=== PATIENT | male | born 1990 | race American Indian/Alaskan Native ===

== ENCOUNTER 2021-01-08 13:37 | Emergency (ER) | payer SELFPAY ==
[2021-01-08 14:31] VITALS: BP 153/46
[2021-01-08] MEDS ORDERED: ACETAMINOPHEN 500 MG TAB PO STA (14:37)
[2021-01-08] MEDS ORDERED: IBUPROFEN 800 MG TAB PO STA (14:37)
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
== END 2021-01-08 17:33 | disposition home or self-care (01) ==
LOC: ED 13:37
DX: J02.9 Acute pharyngitis, unspecified (principal); Z79.899 Other long term (current) drug therapy
CPT/HCPCS: 99282

== ENCOUNTER 2021-08-12 15:44 | Emergency (ER) | payer SELFPAY ==
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
[2021-08-13 00:41] VITALS: BP 142/86
== END 2021-08-13 00:40 | disposition home or self-care (01) ==
LOC: ED 15:44
DX: M54.50 Low back pain, unspecified (principal); Z79.899 Other long term (current) drug therapy; V89.2XXA Person injured in unspecified motor-vehicle accident, traffic, initial encounter; Y93.89 Activity, other specified; Y92.488 Other paved roadways as the place of occurrence of the external cause; Y99.8 Other external cause status
CPT/HCPCS: 99282

== ENCOUNTER → 2022-04-25 13:35 | Emergency (ER) | payer SELFPAY | END | disposition left against medical advice (07) | LOC: ED 13:35 | DX: Z11.3 Encounter for screening for infections with a predominantly sexual mode of transmission (principal); Z53.21 Procedure and treatment not carried out due to patient leaving prior to being seen by health care provider ==

== ENCOUNTER 2022-04-25 23:26 | Emergency (ER) | payer SELFPAY ==
[2022-04-26 04:11] LABS: Bacteria,Urine 1+ /HPF (Negative); Mucus,Urine 3+ /HPF
[2022-04-26 04:22] LABS: Color,Urine Yellow (Yellow)
[2022-04-26] MEDS ORDERED: AZITHROMYCIN 250 MG TAB PO ONE (04:55)
[2022-04-26] MEDS ORDERED: LIDOCAINE-MPF (1%) 10 MG/1 ML VIAL 5 ML INFILTRATI ONE (04:55)
--- NOTE | 2022-04-26 04:56 | Emergency Department Report ---
ED General Adult HPI - General Chief complaint: Urogenital-Male Stated complaint: PENILE DISCHARGE Time Seen by Provider: 04/26/22 04:45 Source: patient Mode of arrival: Ambulatory Limitations: No Limitations - History of Present Illness Initial comments: 32-year-old male with no significant past medical history reports to the ER with complaints penile swelling 3 days and dysuria for 1 day. Patient had unprotected sex that was rough around 1 week ago. Patient reports started off with a condom and then condom popped during sex. No other acute symptoms reported at this time. - Related Data Previous Rx's Medication Instructions Recorded Last Taken Type Amoxicillin [Trimox CAP] 500 mg PO BID 10 Days #20 capsule 01/08/21 Unknown Rx Ibuprofen [Motrin 800 MG tab] 800 mg PO Q8HR PRN #20 tablet 01/08/21 Unknown Rx methocarbamoL [Methocarbamol] 750 mg PO TID PRN #20 tablet 01/08/21 Unknown Rx Ketorolac [Toradol] 10 mg PO Q6H PRN #15 tablet 08/12/21 Unknown Rx methOCARBAMOL [Robaxin TAB] 750 mg PO Q8H PRN #14 tablet 08/12/21 Unknown Rx Doxycycline Hyclate [Doxycycline 100 mg PO Q12HR 7 Days #14 tab 04/26/22 Unknown Rx Hyclate TAB] Allergies Allergy/AdvReac Type Severity Reaction Status Date / Time No Known Allergies Allergy Unverified 01/08/21 14:30 ED Review of Systems ROS: Stated complaint: PENILE DISCHARGE Other details as noted in HPI Comment: All other systems reviewed and negative Genitourinary: dysuria, other (Penis pain with swelling). denies: discharge ED Past Medical Hx - Past Medical History Previous Medical History?: No - Social History Smoking Status: Never Smoker Substance Use Type: None - Medications Home Medications: Home Medications Medication Instructions Recorded Confirmed Last Taken Type Amoxicillin [Trimox CAP] 500 mg PO BID 10 Days #20 capsule 01/08/21 Unknown Rx Ibuprofen [Motrin 800 MG tab] 800 mg PO Q8HR PRN #20 tablet 01/08/21 Unknown Rx methocarbamoL [Methocarbamol] 750 mg PO TID PRN #20 tablet 01/08/21 Unknown Rx Ketorolac [Toradol] 10 mg PO Q6H PRN #15 tablet 08/12/21 Unknown Rx methOCARBAMOL [Robaxin TAB] 750 mg PO Q8H PRN #14 tablet 08/12/21 Unknown Rx Doxycycline Hyclate [Doxycycline 100 mg PO Q12HR 7 Days #14 tab 04/26/22 Unknown Rx Hyclate TAB] ED Physical Exam - General Limitations: No Limitations General appearance: alert, in no apparent distress - Head Head exam: Present: atraumatic, normocephalic - Eye Eye exam: Present: normal appearance - ENT ENT exam: Present: mucous membranes moist - Neck Neck exam: Present: normal inspection - Respiratory Respiratory exam: Present: normal lung sounds bilaterally. Absent: respiratory distress - Cardiovascular Cardiovascular Exam: Present: regular rate, normal rhythm. Absent: systolic murmur, diastolic murmur, rubs, gallop - GI/Abdominal GI/Abdominal exam: Present: soft, normal bowel sounds - Rectal Rectal exam: Present: deferred - exam: Absent: testicular tenderness, urethral discharge, scrotal swelling External exam: Present: swelling (Penis tip). Absent: erythema - Extremities Exam Extremities exam: Present: normal inspection - Back Exam Back exam: Present: normal inspection - Neurological Exam Neurological exam: Present: alert, oriented X3 - Psychiatric Psychiatric exam: Present: normal affect, normal mood - Skin Skin exam: Present: warm, dry, intact, normal color. Absent: rash ED Course Vital Signs 04/26/22 04/26/22 02:27 05:55 Temperature 98.4 F Pulse Rate 57 L 72 Respiratory 16 16 Rate Blood Pressure 125/50 Blood Pressure 112/74 [Right] O2 Sat by Pulse 100 97 Oximetry ED Medical Decision Making - Medical Decision Making 32-year-old male with no significant past medical history reports to the ER with complaints penile swelling 3 days and dysuria for 1 day. Patient had unprotected sex that was rough around 1 week ago. Patient reports started off with a condom and then condom popped during sex. No other acute symptoms reported at this time. Distal penis swelling noted. No discharge noted. No scrotal tenderness noted. No nitrites or leukocytes noted in urine. Patient does have elevated WBC urine noted. Patient started on prophylaxis for gonorrhea chlamydia. Rocephin 500 mg IM, azithromycin 1000 mg p.o. Prescription for doxycycline 100 mg twice daily for 7 days. Patient informed to follow-up with [facility]. Patient is with plan of care and verbalized understanding. Vital Signs 04/26/22 04/26/22 02:27 05:55 Temperature 98.4 F Pulse Rate 57 L 72 Respiratory 16 16 Rate Blood Pressure 125/50 Blood Pressure 112/74 [Right] O2 Sat by Pulse 100 97 Oximetry Lab Results 04/26/22 Range/Units Unknown Urine Color Yellow (Yellow) Urine Turbidity Hazy (Clear) Specific [place] (Man) 1.020 (1.003-1.030) Ur Protein (Man) 3+ (Negative) mg/dL Ur Ketones (Man) Negative (Negative) Ur Nitrite (Man) Negative (Negative) Ur Reducing Substances Not Reportable Urine Ictotest Not Reportable Leukocyte Esterase (Man) Negative (Negative) Urine WBC (Auto) 27.0 H (0.0-6.0) /HPF Urine RBC (Auto) 27.0 (0.0-6.0) /HPF Urine Bacteria (Auto) 1+ (Negative) /HPF Urine RBC (Manual) Trace (Negative) Urine Mucus 3+ /HPF Critical care attestation.: If time is entered above; I have spent that time in minutes in the direct care of this critically ill patient, excluding procedure time. ED Disposition Clinical Impression: Potential exposure to STD, Swelling, penis Disposition: 01 HOME / SELF CARE / HOMELESS Is pt being admited?: No Condition: Stable Instructions: Gonorrhea Test, Safe Sex, Chlamydia Test Prescriptions: Doxycycline Hyclate [Doxycycline Hyclate TAB] 100 mg PO Q12HR 7 Days #14 tab Referrals: YOVANI VALDES MD [Primary Care Provider] - 3-5 Days
[2022-04-26 05:56] VITALS: BP 112/74
== END 2022-04-26 05:55 | disposition home or self-care (01) ==
LOC: ED 23:26
DX: N50.89 Other specified disorders of the male genital organs (principal); Z20.2 Contact with and (suspected) exposure to infections with a predominantly sexual mode of transmission
CPT/HCPCS: 81001; 87086; 87591; 96372; 99283; J0696; J3490